=== PATIENT | female | born 2000 | race Caucasian/White ===

== ENCOUNTER 2022-07-03 15:20 | Emergency (ER) | payer MEDICAID, SELFPAY ==
[2022-07-03 15:50] VITALS: BP 146/90; PULSE 105; RESP 20; TEMP 37.1; O2SAT 97; BMI 27.1
--- NOTE | 2022-07-03 17:59 | PC.NURSE ---
pt leaving without being seen
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
[2022-07-03 19:11] VITALS: BP 0/0; PULSE 0; RESP 0; TEMP -17.7; TEMP 0; O2SAT 0
== END 2022-07-03 18:00 | disposition left against medical advice (07) ==
PROVIDERS: Emergency Provider Family Medicine
DX: R10.32 Left lower quadrant pain (principal); R10.2 Pelvic and perineal pain; R42 Dizziness and giddiness; R07.89 Other chest pain; F17.210 Nicotine dependence, cigarettes, uncomplicated
CPT/HCPCS: 99282